=== PATIENT | male | born 1970 | race African-American/Black ===

== ENCOUNTER 2017-06-11 14:27 | Emergency (ER) | payer SELFPAY ==
[~2017-06-11] VITALS: Ht 188 cm; Wt 100.0 kg
[~2017-06-11 14:27] MED LIST: IBUP-232 PO
[2017-06-11 14:28] VITALS: BP 144/84; PULSE 81; RESP 18; TEMP 98.7; O2SAT 99
--- NOTE | 2017-06-11 16:30 | PD ---
HPI Chief Complaint: Pain: Acute or Chronic Time Seen by Provider: 16:25 Travel History International Travel<30 days: No Contact w/Intl Traveler<30days: No Traveled to known affect area: No History of Present Illness HPI 47 year old male presents emergency Department with complaint of right knee pain and swelling that has been on and off for the last 2 years. Pain is to posterior aspect. Denies new or recent injury. He is ambulatory in the affected extremity. Has been taking ibuprofen for symptom management. Has also been using a knee brace for support. Denies paresthesias, loss of sensation, decreased range of motion, decreased strength to the affected extremity. Pain is aggravated with standing for long periods of time. Pain is also aggravated when he squats down and tries to get back up using the affected leg. He sometimes has no knee pain at all. Describes pain as an aching sensation. No known aggravating or relieving factors. Symptoms are mild in severity. No known allergies. Has no other medical complaints. No other modifying factors or associated signs and symptoms. Allergies-Medications (Allergen,Severity, Reaction): Coded Allergies: No Known Allergies (Unverified , 11/24/14) Reported Meds & Prescriptions Reported Meds & Active Scripts Active Motrin (Ibuprofen) 600 Mg Tab 600 Mg PO Q6 PRN Review of Systems Except as stated in HPI: all other systems reviewed are Neg Physical Exam Narrative GENERAL: Well-nourished, well-developed black male patient, in no acute distress ; afebrile, nontoxic-appearing SKIN: Warm and dry. HEAD: Atraumatic. Normocephalic. EYES: Pupils equal and round. No scleral icterus. No injection or drainage. ENT: Mucosa pink and moist. Airway patent. NECK: Trachea midline. CARDIOVASCULAR: Regular rate. RESPIRATORY: No accessory muscle use. GASTROINTESTINAL: Flat. MUSCULOSKELETAL: Right knee is nonedematous, nonerythematous, and without ecchymosis; full range of motion and flexion to 90; point tenderness to the posterior aspect; joint stable with negative drawer test; no obvious deformity. Right Lower extremity is supple and non-tense with 2+ pedal pulse and sensory intact and without erythema or edema. Ambulatory in room on unaffected extremity. No cyanosis. No edema. No clubbing. NEUROLOGICAL: Awake and alert. Oriented 3. No obvious cranial nerve deficits. Motor grossly within normal limits. Normal speech. PSYCHIATRIC: Appropriate mood and affect; insight and judgment normal. Data Data Last Documented VS Vital Signs Date Time Temp Pulse Resp B/P (MAP) Pulse Ox O2 Delivery O2 Flow Rate FiO2 06/11/17 14:28 98.7 81 18 144/84 (104) 99 Room Air [facility] Medical Screen Exam Complete: Yes Emergency Medical Condition: No Differential Diagnosis Bursitis, arthritis, knee pain Narrative Course 47-year-old male with knee pain 2 years. Denies any recent injury. I do not suspect fracture or dislocation and fell imaging is not necessary at this time. Vital signs are stable and the patient is stable for outpatient follow-up and treatment. The patient has no urgent or emergent medical complaints. There is no emergent or urgent medical need at this time. I instructed the patient to follow up with [facility] primary care provider. A medical screening exam was performed: At the time of evaluation the presenting medical condition was determined not to be of an emergent nature. The patient was given the option of receiving additional care, but declined. Patient was given options for additional community resources from which to obtain care. The Patient Has Been advised to seek medical attention for their presenting complaint. The patient has been advised to return to the ER at any time if an emergent condition develops. Primary Impression: Encounter for medical screening examination Condition: Stable Jamee Lebron Jun 11, 2017 16:30
== END 2017-06-11 16:36 | disposition left against medical advice (07) ==
LOC: NEPK 14:27
DX: M25.461 Effusion, right knee (principal)
CPT/HCPCS: 99281